=== PATIENT | male | born 1970 | race Caucasian/White ===

== ENCOUNTER 2018-07-22 12:02 | Emergency (ER) | payer OTHER ==
[~2018-07-22] VITALS: Ht 172.7 cm; Wt 70.9 kg
--- NOTE | 2018-07-22 12:45 | NUR ---
ICT BUSINESS ANALYST: PT AMBULATORY TO ROOM FROM LOBBY
--- NOTE | 2018-07-22 12:55 | NUR ---
pt to ed for lower abd pain and lower back pain x4 days. lbm yesterday. connected to monitors. vss. awaiting edmd assessment.
[2018-07-22 12:56] VITALS: BP 114/74
[2018-07-22 13:12] LABS: MICROSCOPIC AUTO
[2018-07-22 13:13] LABS: BASOPHILS # (AUTO) 0.03 x10^3/uL (0-0.1); BASOPHILS % (AUTO) 0 % (0-1); EOSINOPHILS # (AUTO) 0.24 x10^3/uL (0-0.4); EOSINOPHILS % (AUTO) 3 % (1-7); LYMPHOCYTES # (AUTO) 1.15 x10^3/uL (1-3.4); LYMPHOCYTES % (AUTO) 14 % (22-44); MD NO; MEAN CORPUSCULAR HEMOGLOBIN 29.8 pg (27.5-34.5); MEAN CORPUSCULAR HGB CONC 34.4 g/dL (33.2-36.2); MEAN CORPUSCULAR VOLUME 86.4 fL (81-97); MEAN PLATELET VOLUME 8.8 fL (7.4-10.4); MONOCYTES # (AUTO) 0.79 x10^3/uL (0.2-0.8); MONOCYTES % (AUTO) 10 % (2-9); NEUTROPHILS # (AUTO) 5.86 x10^3/uL (1.8-6.8); NEUTROPHILS % (AUTO) 73 % (42-75); PLATELET COUNT 189 x10^3/uL (130-400); RED BLOOD COUNT 5.46 x10^6/uL (4.38-5.82); RED CELL DISTRIBUTION WIDTH 13.1 % (9.4-14.8)
[2018-07-22 13:20] LABS: CULTURE INDICATED? NO
[2018-07-22 13:24] LABS: ALBUMIN 4.2 g/dL (3.4-5.0); ANION GAP 5 mmol/L (5-15); CALCIUM 8.8 mg/dL (8.5-10.1); CHLORIDE 106 mmol/L (98-107)
[2018-07-22 13:32] LABS: ALANINE AMINOTRANSFERASE 32 U/L (12-78); ALKALINE PHOSPHATASE 61 U/L (45-117); BILIRUBIN,TOTAL 0.7 mg/dL (0.2-1.0); CREATININE 0.99 mg/dL (0.7-1.3); TOTAL PROTEIN 7.5 g/dL (6.4-8.2)
--- NOTE | 2018-07-22 14:11 | NUR ---
pt to ct at this time.
--- NOTE | 2018-07-22 14:19 | NUR ---
pt back from ct at this time.
== END 2018-07-22 15:09 | disposition home or self-care (01) ==
LOC: ED 14:01
DX: R10.33 Periumbilical pain (principal); M54.5 Low back pain
CPT/HCPCS: 36415; 74021; 74176; 80053; 81001; 83690; 85025; 99284